=== PATIENT | male | born 1985 ===

== ENCOUNTER 2016-10-26 14:31 | Emergency (ER) | payer OTHER ==
[2016-10-26 14:53] VITALS: BP 121/50
[2016-10-26 15:05] LABS: Hematocrit 40.5 % (42.0-52.0); Mean Cell Volume 87.3 fl (78-100); Mean Corpuscular Hemoglobin 30.2 pg (27-31); Mean Corpuscular Hgb Conc 34.6 g/dl (32-36); Mean Platelet Volume 10.4 fl (6.0-9.5); Neutrophil # 7.8 K/mm3 (1.3-6.0); Neutrophil % 74.2 % (42-75.0); Platelet Count 156 K/mm3 (150-450); Red Blood Count 4.64 M/mm3 (4.7-6.0); Red Cell Distribution Width 12.3 % (11.5-14.0); White Blood Count 10.5 K/mm3 (4.0-10.5)
--- NOTE | 2016-10-26 15:08 | ERNOTE ---
Integumentary HPI - Narrative Date of Service: 10/26/16 - General Presenting Symptoms: abscess Time Seen by Provider: 10/26/16 14:44 Source: patient Exam Limitations: no limitations - Immun/Allergies/Home Medications Immunizations: IMMUNIZATION HX Immunizations Up to Date Yes History of Influenza Vaccine Yes Allergies/Adverse Reactions: Allergies Allergy/AdvReac Type Severity Reaction Status Date / Time epinephrine [From EpiPen] Allergy Anaphylaxis Verified 10/26/16 14:48 Home Medications: HOME MEDICATIONS Sulfamethoxazole/Trimethoprim [Bactrim Ds] 1 tab PO BID #28 tab 10/26/16 [Last Taken Unknown] - History of Present Illness Narrative: Pt. comes in from [facility] with c/o L wrist lump with surrounding cellulitis for three days. Pt. has a hx of IV drug use and similar symptoms previously and has a hx of MRSA. Pt. denies any NVD, fever, dizziness, CP, or SOB. Pt. states that he expressed large amount of purulent drainage from wound three days ago. Review of Systems - Review of Systems Constitutional: Present: no symptoms reported. Absent: recent illness, fever, chills, weakness, fatigue, malaise EYE: Present: no symptoms reported. Absent: eye pain, eye discharge ENT: Present: no symptoms reported. Absent: ear pain, ear discharge, nose pain , nose congestion, nasal drainage, sore throat Respiratory: Present: no symptoms reported. Absent: shortness of breath, cough , wheezing Cardiology: Present: no symptoms reported. Absent: chest pain, palpitations, edema Gastrointestinal/Abdominal: Present: no symptoms reported. Absent: nausea, vomiting, diarrhea Genitourinary: Present: no symptoms reported. Absent: frequency, decreased urinary output Musculoskeletal: Present: no symptoms reported. Absent: back pain, joint pain Skin: Present: lumps - L wrist Neurological: Present: no symptoms reported. Absent: headache, dizziness/light- headedness, numbness, tingling All Other Systems: All systems neg except as marked - Patient's Past Medical History Patient History - Medical: Other - MRSA Patient History - Cardiac/Respiratory: No pertinent hx Patient History - Cancer: No Hx of Cancer Patient History - Surgical Procedures: Other - Social History Smoking Status: Former smoker Have you smoked in the past 12 months: Yes Drug Use: marijuana, meth - Immunizations Immunizations Up to Date: Yes History of Influenza Vaccine: Yes Physical Exam - Physical Exam General Appearance: Present: wd/wn, alert, no apparent distress Head Exam: Present: normal inspection, no evidence of injury Eye Exam: Normal inspection: bilateral, PERRL: bilateral, EOMI: bilateral Neck: Present: normal inspection Respiratory: Present: no respiratory distress, normal breath sounds, no accessory muscle use, chest nontender, lungs clear Cardiovascular/Chest: Present: regular rate, rhythm, no murmur, normal peripheral pulses Back Exam: Present: normal inspection Extremity Exam: Present: normal range of motion, no edema Neurological Exam: Present: alert, oriented, normal mood/affect, no motor/ sensory deficits Skin Exam: Present: other - L wrist abscess 2cm in diameter green purulent material Lymphatic Exam: Present: no adenopathy ED Progress - Vital Signs Patient's Vital Signs:: I have reviewed the patient's vital signs. Vital Signs: Vital Signs 10/26/16 14:44 Temperature 35.7 C L Pulse Rate 70 Respiratory 12 Rate Blood Pressure 121/50 O2 Sat by Pulse 98 Oximetry - Progress/Reassessment Chief Complaint: Abscess Procedures Left Dorsal Wrist Anesthesia: Other - pt refused I & D Prep: betadine prep Blade Size: 15 Findings and Actions: purulent drainage large, probed/breakup loculation, packed with guaze Estimated blood loss (ml): 0 Complications: Pt tremaine procedure well Departure Clinical Impression: Abscess - Departure Disposition: Fpc Condition: Good Instructions: Abscess, [id number] Additional Instructions: Please follow up with primary provider in 2-3 days for wound recheck may remove packing in 24 hours and leave off. Prescriptions: Sulfamethoxazole/Trimethoprim [Bactrim Ds] 1 tab PO BID #28 tab
[2016-10-26 15:26] LABS: Albumin * 3.8 gm/dl (3.4-5.0); Anion Gap 11.1 mmol/L (6.8-13.8); BUN/Creatinine Ratio 17.9 (9.0-21.6); Bilirubin, Total 0.9 mg/dL (0.0-1.1); CRP 0.9 mg/dL (0.0-0.9); Ca. Corrected For Albumin 8.4 mg/dL (8.4-10.2); Calcium * 8.6 mg/dL (7.9-10.9); Carbon Dioxide 30.5 mmol/L (24-32.6); Potassium 4.6 mmol/L (3.4-4.6); Total Protein 6.8 gm/dL (6.2-8.2)
== END 2016-10-26 15:57 ==
LOC: ER 14:31
PROC: 0H9GXZZ Drainage of Left Hand Skin, External Approach (ICD-10-PCS; principal; 2016-10-26)
DX: L02.414 Cutaneous abscess of left upper limb (principal); Z86.14 Personal history of Methicillin resistant Staphylococcus aureus infection; Z87.891 Personal history of nicotine dependence